=== PATIENT | male | born 1965 | race Caucasian/White ===

== ENCOUNTER 2021-11-30 09:28 | Emergency (ER) | payer SELFPAY ==
--- NOTE | ~2021-11-30 | US_ITS ---
EXAMINATION: US abdomen limited DATE: 11/30/2021 11:11 INDICATION: Abdominal pain TECHNIQUE: Multiple grayscale and Doppler ultrasound images of the abdomen were obtained. COMPARISON: None FINDINGS: Pancreas is normal. Liver has normal echogenicity and contour, with a smooth surface. No liver lesion identified. No intrahepatic biliary duct dilation suspected. Portal venous flow was seen in the hepa topetal, normal direction and has normal Doppler waveform. The gallbladder is normal in appearance. There is no cholelithiasis. The common bile duct measures 3 mm, which is normal. Sonographic Villagran s ign was reported as negative by the tool tender.The visualized proximal to mid inferior vena cava is normal. Visualized portion of the proximal to mid abdominal aorta is normal. IMPRESSION: 1. Normal right upper quadrant ultrasound. Reviewed, dictated and finalized at location A.
--- NOTE | ~2021-11-30 | CT_ITS ---
EXAMINATION: CT abdomen pelvis w con DATE: 11/30/2021 13:07 INDICATION: Abdominal pain, nausea and vomiting TECHNIQUE: Computed tomography (CT) of the abdomen and pelvis was performed with 100 mL Omnipaque-300 intravenous contrast. Automated exposure control and iterative reconstruction technique were employe d. The dose-length product was 220.03 mGy-cm. COMPARISON: None FINDINGS: Lung bases are clear. Visualized inferior heart is normal. No pericardial or pleural effusion. Liver, gallbladder spleen, pancreas and bilateral adrenal glands are normal. 2 mm at least partially obstru cting stone at the right ureterovesicular junction with mild right hydroureteronephrosis and mildly d elayed right nephrogram. 2-3 mm nonobstructing stone in a middle calyx of the left kidney. A small kn uckle of small bowel extends into a small direct left inguinal hernia. No bowel obstruction or abnorm al wall thickening. Appendix is normal. Decompressed bladder is unremarkable. No free intraperitoneal gas or fluid. No pathologically enlarged abdominal or pelvic lymphadenopathy. Bones are unremarkable . IMPRESSION: 1. Bilateral nephrolithiasis with 2 mm at least partially obstructing stone at the left ureterovesicu lar junction with mild left hydroureteronephrosis. Reviewed, dictated and finalized at location A. IMPRESSION: 1. Bilateral nephrolithiasis with 2 mm at least partially obstructing stone at the left ureterovesicular junction with mild left hydroureteronephrosis.
--- NOTE | ~2021-11-30 | XR_ITS ---
EXAMINATION: XR chest 2V DATE: 11/30/2021 10:09 INDICATION: Chest pain TECHNIQUE: frontal and lateral views of the chest were obtained. COMPARISON: Chest radiograph dated 11/11/2003 FINDINGS: Mild right apical pleural-parenchymal scarring. No other airspace opacities, pulmonary edema, pleural effusion or pneumothorax. The cardiomediastinal silhouette is normal. Mild thoracic spondylosis. IMPRESSION: 1. Mild right apical pleural-parenchymal scarring. Reviewed, dictated and finalized at location A.
[2021-11-30 09:29] VITALS: BP 135/75; PULSE 58; RESP 16; TEMP 36.1; O2SAT 100
--- NOTE | 2021-11-30 09:31 | ECG_ITS ---
Measurements Intervals [place] Rate: 58 P: 164 OR: 175 QRS: 72 QRSD: 98 T: 65 QT: 426 QTc: 418 Interpretive Statements SINUS RHYTHM WITH SINUS ARRHYTHMIA BASELINE ARTIFACT- I, II, III, AVR, AVL, AVF, V4-V6 NORMAL ECG Electronically Signed On 11-30-2021 11:18:12 CDT by Jason Casiano D.O.
--- NOTE | 2021-11-30 09:52 | ED.CHESTPAIN ---
HPI - Chest Pain General Chief Complaint: Chest Pain Stated Complaint: CHEST/BACK PAIN XTD Time Seen by Provider: 11/30/21 09:46 Source: RN notes reviewed History of Present Illness HPI narrative: Patient presents emergency room from home for right-sided chest and back pain. Patient states pain began approximately 1 AM this morning. The pain is located in the right lower chest and the right upper abdomen and radiates into the right back described as sharp and stabbing. Associated with several episodes of nausea vomiting. States he feels like he is short of breath because he cannot take a deep breath secondary to the pain. He denies any fevers or chills diarrhea or any other symptoms states did not take any pain medication for the symptoms Related Data Allergies Allergy/AdvReac Type Severity Reaction Status Date / Time No Known Allergies Allergy Verified 06/11/11 17:54 Review of Systems Review of Systems: Gen.: Denies fevers or chills ENT: Denies congestion Respiratory: Reports shortness of breath secondary to the pain CV: Reports right-sided chest pain GI: See HPI Musculoskeletal: Denies back pain or muscle pain Neuro: Denies numbness, tingling, weakness or focal weakness Skin: Denies rash Except as documented, all other systems reviewed and negative PMFSH Past Medical History Medical History (Updated 11/30/21 @ 14:13 by Aniket Rodriguez DO) Patient denies significant medical history Social History Social History (Updated 11/30/21 @ 10:00 by Aniket Rodriguez DO) Smoking status: Never smoker Exam Narrative: APPEARANCE: No acute distress, nontoxic, resting in bed HEENT: Normocephalic, atraumatic, OMM RESPIRATORY: No respiratory distress, clear to auscultation bilaterally with no rhonchi wheezing or rales CARDIOVASCULAR: RRR s murmur ABDOMINAL: Soft nondistended tender palpation right upper quadrant no tenderness left upper quadrant, right lower quadrant left lower quadrant no rebound or guarding MUSCULOSKELETAl: Moves all extremities. No clubbing, cyanosis or edema. NEURO: Awake and alert. Following commands, speech normal, no focal deficits SKIN:: Warm, dry. Normal Color PSYCHIATRIC: Normal affect/mood Course Course Emergency Course: Patient is asking as chest x-ray states he is scheduled to get a CT scan of his chest because a ferritin an area in his left lung discussed with him that his chest x-ray today he had some mild scarring seen on the right side but nothing on the left side. D-dimer is negative patient is wondering if the CT scan of his chest done in the ER and we discussed that there is no indication at this time and I am not sure why they were scanning his chest and he needs a follow-up scheduled with his doctor Patient states he is feeling better at this time Discussed with patient results of workup and diagnosis. Discussed need for follow-up with primary care, proper use of medication, and reasons to return to the emergency department. Patient understands and agrees to current treatment plan Vital Signs Vital signs: Vital Signs Temperature 97 F L 11/30/21 09:29 Pulse Rate 58 L 11/30/21 09:29 Respiratory Rate 16 11/30/21 09:29 Blood Pressure 135/75 11/30/21 09:29 Pulse Oximetry 100 11/30/21 09:29 Oxygen Delivery Room Air 11/30/21 09:29 Temperature 97 F L 11/30/21 09:29 Pulse Rate 62 11/30/21 11:49 Respiratory Rate 16 11/30/21 09:29 Blood Pressure 107/75 11/30/21 12:39 Pulse Oximetry 100 11/30/21 11:49 Oxygen Delivery Room Air 11/30/21 11:49 MDM - Chest Pain MDM Narrative Medical decision making narrative: Patient's EKGs and labs are without significant high risk changes. Cardiac risk factors reviewed. Patient is felt likely low risk for ACS and reasonable for further risk stratification testing as an outpatient. Pain was not sudden or maximal in onset without tearing or ripping quality. No other signs of symptoms suggest aortic dissection. Rufus vásquez
[2021-11-30 09:59] LABS: Basophils Percent Auto 0.2 % (0.2-1.2); Hematocrit 45.7 % (42.0-52.0); Hemoglobin 14.7 g/dL (14.0-18.0); Immature Granulocyte Absolute 0.04 K/mm3 (0.00-0.031); Immature Granulocyte Percent A 0.3 % (0-0.5); Lymphocytes Absolute Auto 0.57 K/mm3 (0.9-3.2); Lymphocytes Percent Auto 4.5 % (18.3-44.2); Mean Corpuscular HGB Conc 32.2 g/dl (32-36); Mean Corpuscular Hemoglobin 32.5 pg (26-34); Mean Corpuscular Volume 101.1 fl (80-100); Mean Platelet Volume 10.2 fl (7.4-10.4); Monocytes Absolute Auto 0.3 K/mm3 (0.1-0.6); Monocytes Percent Auto 2.3 % (2.6-8.5); Neutrophils Absolute Auto 11.7 K/mm3 (1.3-6.7); Neutrophils Percent Auto 92.7 % (45.5-73.1); Platelet Count Result 223 k/mm3 (150-375); Red Blood Count 4.52 M/mm3 (4.6-6.20); Red Cell Distribution Width 12.5 % (11.5-14.5); White Blood Count 12.6 K/mm3 (4.5-10.0)
[2021-11-30 10:09] LABS: Alanine Aminotransferase 32 U/L (6-50); Albumin Level 4.5 g/dL (3.5-5.1); Alkaline Phosphatase 128 U/L (38-126); Anion Gap 9 mmol/L (8-16); Aspartate Amino Transferase 29 U/L (17-59); Bilirubin,Total 0.4 mg/dL (0.2-1.3); Blood Urea Nitrogen 17 mg/dL (9-20); Calcium 9.5 mg/dL (8.4-10.2); Carbon Dioxide 31 mmol/L (22-30); Chloride 101 mmol/L (98-107); Estimated CRCL calculation 70 ml/min; Estimated Glomerular Filt Rate > 60; Glucose 181 mg/dL (65-110); Lipase 62 U/L (23-300); Potassium 3.7 mmol/L (3.4-5.0); Sodium 141 mmol/L (137-145)
[2021-11-30 10:12] LABS: Partial Thromboplastin Time 24.4 SECONDS (22.3-36.8)
[2021-11-30] MEDS: ONDANSETRON INJ 4 MG/2 ML VIAL IV PUSH (10:13)
[2021-11-30] MEDS: KETOROLAC 30 MG/ML VIAL (*BKC) IV PUSH (10:13)
[2021-11-30] MEDS: SODIUM CHLORIDE 0.9% IV 1,000 ML 999 ML IV CONT (10:13)
[2021-11-30 10:20] LABS: Troponin I < 0.012 ng/mL (0.000-0.034)
--- NOTE | 2021-11-30 10:50 | PC.NURSE ---
Patient off unit to CT.
[2021-11-30 11:49] VITALS: PULSE 62; O2SAT 100
[2021-11-30 12:11] LABS: D Dimer 0.26 ug/mL (<0.48)
[2021-11-30 12:39] VITALS: BP 107/75
[2021-11-30 13:04] LABS: Troponin I < 0.012 ng/mL (0.000-0.034)
[2021-11-30] MEDS: TAMSULOSIN HCL 0.4 MG CAPSULE PO (14:01)
[2021-11-30 14:08] LABS: Appearance Urine Clear (Clear); Bilirubin Urine Negative (Negative); Blood Urine 1+ (Negative); Color Urine Yellow (Yellow); Glucose Urine UA Negative (Negative); Ketones Urine Negative (Negative); Leukocyte Esterase Ur Negative LEU/UL (Negative); Nitrate Urine Negative (Negative); Protein Urine Negative (Negative); Urobilinogen Urine 0.2 mg/dL (<2.0)
[2021-11-30 14:13] LABS: Bacteria Urine Trace /hpf; Mucus Urine Rare /lpf; WBC Urine 0-3 /hpf
[2021-11-30 14:14] LABS: Add Urine Microscopic? YES
[2021-11-30 14:48] VITALS: BP 101/60; PULSE 72; RESP 18; O2SAT 99
== END 2021-11-30 14:52 | disposition home or self-care (01) ==
PROVIDERS: Emergency Provider Emergency Medicine; PCP Internal Medicine Gastroenterology
DX: N13.2 Hydronephrosis with renal and ureteral calculous obstruction (principal); K40.90 Unilateral inguinal hernia, without obstruction or gangrene, not specified as recurrent
CPT/HCPCS: 36415; 71046; 74177; 76705; 80053; 81001; 83690; 84484; 85025; 85380; 85610; 85730; 93005; 96361; 96374; 96375; 99284; A9270; J1885; J2405; J7030; Q9967

== ENCOUNTER → 2021-12-02 11:03 | Outpatient (CLI) | payer SELFPAY ==
--- NOTE | ~2021-12-02 | CT_ITS ---
EXAMINATION:CT diagnostic chest w con DATE: 12/02/2021 11:42 INDICATION: Lesion of lung. TECHNIQUE: Computed tomography (CT) of the chest was performed with 75 mL Omnipaque 350 intravenous c ontrast. Automated exposure control and iterative reconstruction technique were employed. The dose-le ngth product (DLP) was 146.19 mGy-cm. COMPARISON: CT abdomen and pelvis 11/30/2021, chest 2 views 11/30/2021 FINDINGS: There is mild scarring at the lung apices. There is minimal atelectasis bilaterally. No ple ural effusion. The heart size is normal. No pericardial effusion. There is ectasia of ascending aorta measuring 4.3 cm. There is mild thoracic spondylosis. There is mild chronic anterior wedging of mult iple vertebral bodies. IMPRESSION: 1. Mild scarring at the lung apices. Reviewed, dictated and finalized at location A.
== END ==
PROVIDERS: PCP Internal Medicine Gastroenterology; Visit Provider Internal Medicine Gastroenterology
DX: R91.8 Other nonspecific abnormal finding of lung field (principal)
CPT/HCPCS: 71260; Q9967